=== PATIENT | female | born 1955 | race Caucasian/White ===

== ENCOUNTER 2016-06-23 06:58 | Emergency (ER) | payer MEDICAID, OTHER ==
[~2016-06-23] VITALS: Wt 63.5 kg
[~2016-06-23 06:58] MED LIST: ALEN70TA30 PO; LEVO75TA65 PO
[2016-06-23] MEDS ORDERED: ONDANSETRON 4 MG INJ IV STA (07:23)
[2016-06-23] MEDS ORDERED: SOD CHLORIDE 0.9% 1,000 ML IV STA (07:23)
[2016-06-23] MEDS ORDERED: morphine 2 MG INJ IV ONE (07:30)
[2016-06-23] MEDS ORDERED: DICLOFENAC SODIUM 37.5 MG/ML VIAL IV STA (08:04)
[2016-06-23 08:14] LABS: BASOPHILS % 0.2 % (0.0-2.0); EOSINOPHILS % 0.6 % (0.0-7.0); HEMATOCRIT 39.2 % (37.0-47.0); HEMOGLOBIN 13.1 g/dl (12.0-16.0); LYMPHOCYTES # 0.5 10^3/ul (0.8-2.9); LYMPHOCYTES % 7.2 % (15.0-51.0); MEAN CORPUSCULAR HEMOGLOBIN 29.1 pg (29.0-33.0); MEAN CORPUSCULAR HGB CONC 33.4 g/dl (32.0-37.0); MEAN CORPUSCULAR VOLUME 87.4 fl (82.0-101.0); MEAN PLATELET VOLUME 9.4 fl (7.4-10.4); MONOCYTE # 0.2 10^3/ul (0.3-0.9); MONOCYTES % 3.2 % (0.0-11.0); NEUTROPHIL # 5.7 10^3/ul (1.6-7.5); NEUTROPHILS % 88.8 % (39.0-77.0); PLATELET COUNT 138 10^3/UL (140-440); RED BLOOD COUNT 4.49 10^6/ul (4.20-5.40); RED CELL DISTRIBUTION WIDTH 14.8 % (11.5-14.5); UNCORRECTED WBC 6.4 10^3/ul (4.8-10.8); WHITE BLOOD COUNT 6.4 10^3/ul (4.8-10.8)
[2016-06-23 08:16] LABS: ADD UMIC YES; URINE BILIRUBIN (Dip) NEGATIVE (NEGATIVE); URINE BLOOD (Dip) NEGATIVE (NEGATIVE); URINE COLOR YELLOW (YELLOW); URINE GLUCOSE (Dip) NEGATIVE (NEGATIVE); URINE KETONES (Dip) NEGATIVE (NEGATIVE); URINE LEUKOCYTE ESTERASE (Dip) TRACE (NEGATIVE); URINE NITRITE (Dip) NEGATIVE (NEGATIVE); URINE TOTAL PROTEIN (Dip) NEGATIVE (NEGATIVE); URINE UROBILINOGEN (Dip) 1.0 E.U./dL (0.1-1.0)
[2016-06-23 08:18] LABS: CONDITION 1; LH ANALYZER COMMENTS 1
[2016-06-23 08:30] LABS: CREATININE 0.64 mg/dl (0.44-1.00)
[2016-06-23 08:31] LABS: ALBUMIN/GLOBULIN RATIO 1.14; BILIRUBIN,INDIRECT 0.7 mg/dl (0-1.1); BILIRUBIN,TOTAL 0.7 mg/dl (0.2-1.3); TOTAL PROTEIN 7.5 g/dl (6.1-8.1)
[2016-06-23 08:32] LABS: CALCIUM 8.4 mg/dl (8.4-10.2)
[2016-06-23 08:32] LABS: BACTERIA,URINE MANY; MUCUS,URINE MODERATE
--- NOTE | 2016-06-23 08:45 | RADRPT ---
PROCEDURE: Abdominal Series. CLINICAL INDICATION: Abdominal pain. Constipation. TECHNIQUE: Two views of the abdomen. COMPARISON: None. FINDINGS: There is a nonspecific bowel gas pattern. There is no evidence of large or small bowel obstruction. There is mild retained colonic stool. There are no abnormal calcifications overlying the urinary tra cts. The osseous structures are unremarkable. Calcifications are seen overlying the left iliac wing likely related to gluteal granulomata. IMPRESSION: 1. Unremarkable abdominal radograph series. RPTAT: KK .Narinder Michelle MD, MD Date Time Electronically viewed and signed by .Narinder Michelle MD, MD on 06/23/2016 08:44 .B/
[2016-06-23] MEDS ORDERED: BACTDS PO (09:26)
[2016-06-23] MEDS ORDERED: CIPR500T4 PO (09:26)
[2016-06-23] MEDS ORDERED: ONDA4TAB11 PO (09:26)
[2016-06-23] MEDS ORDERED: NAPR-688 PO (09:26)
[2016-06-23] MEDS ORDERED: FLUC150T17 PO (09:26)
--- NOTE | 2016-06-23 09:33 | ERD ---
ER Documentation Chief Complaint Date/Time DATE: 06/23/16 TIME: 09:28 Chief Complaint fever and abdominal pain with nausea and vomiting since last night HPI This 60-year-old female presents emergency room for aching suprapubic abdominal pain, subjective feeling of warmth and an episode of nonbloody nonbilious vomiting as well as nausea. Denies diarrhea constipation. Does have increased urinary frequency. ROS All systems reviewed and are negative except as per history of present illness. Medications Home Meds Active Scripts Ondansetron (Zofran Odt) 4 Mg Tab.rapdis, 4 MG PO Q6, #10 Prov:ABEBA TSANG DO 06/23/16 Fluconazole* (Diflucan*) 150 Mg Tablet, 150 MG PO ONCE, #1 TAB Take only if you develop a yeast infection Prov:ABEBA TSANG DO 06/23/16 Sulfamethoxazole-Trimethoprim* (Bactrim* DS) 800-160 Mg Tab, 1 TAB PO BID for 5 Days, TAB Prov:ABEBA TSANG DO 06/23/16 Ciprofloxacin Hcl* (Ciprofloxacin Hcl*) 500 Mg Tablet, 500 MG PO BID for 5 Days , TAB Prov:ABEBA TSANG DO 06/23/16 Naproxen* (Naproxen*) 500 Mg Tablet, 500 MG PO BID Y for PAIN, #20 TAB Prov:ABEBA TSANG DO 06/23/16 Reported Medications Alendronate Sodium* (Fosamax*) 70 Mg Tablet, 70 MG PO Q7D, #4 TAB 08/06/15 Levothyroxine Sodium* (Levoxyl*) 75 Mcg Tablet, 75 MCG PO AC BREAKFAST, TAB 02/10/15 Allergies Allergies: Coded Allergies: No Known Allergy (Unverified , 06/23/16) PMhx/Soc History of Surgery: No Anesthesia Reaction: No Hx Neurological Disorder: Yes Hx Respiratory Disorders: Yes (asthma) Hx Cardiac Disorders: No Hx Psychiatric Problems: Yes (bipolar, schizophrenia) Hx Miscellaneous Medical Probl: No Hx Alcohol Use: No Hx Substance Use: Yes ([place] meth) Hx Tobacco Use: Yes (1 pack a day) Smoking Status: Heavy tobacco smoker Physical Exam Vitals Vital Signs Date Time Temp Pulse Resp B/P Pulse Ox O2 Delivery O2 Flow Rate FiO2 06/23/16 07:00 98.8 75 20 103/58 98 Physical Exam Const: [] No distress Head: Atraumatic Eyes: Normal Conjunctiva ENT: Normal External Ears, Nose and Mouth. Neck: Full range of motion..~ No meningismus. Resp: Clear to auscultation bilaterally Cardio: Regular rate and rhythm, no murmurs Abd: Soft, mild suprapubic tenderness without guarding or rebound, non distended. Normal bowel sounds Skin: No petechiae or rashes Back: No midline or flank tenderness Ext: No cyanosis, or edema Neur: Awake and alert and oriented 3, no focal deficits Psych: Normal Mood and Affect Result Diagram: 06/23/16 07506/23/16 0752 Results 24 hrs Laboratory Tests Test 06/23/16 07:50 06/23/16 07:52 Urine Bacteria MANY Urine Bilirubin NEGATIVE Urine Clarity CLEAR Urine Color YELLOW Urine Epithelial Cells MANY Urine Glucose NEGATIVE% Urine Hemoglobin NEGATIVE Urine Ketones NEGATIVE Urine Leukocyte Esterase TRACE Urine Microscopic RBC 5-10/HPF Urine Microscopic WBC 5-10/HPF Urine Mucus MODERATE Urine Nitrite NEGATIVE Urine Specific [place] 1.015 Urine Total Protein NEGATIVE Urine Urobilinogen 1.0 E.U./dL Urine pH 6.5 Alanine Aminotransferase (ALT/SGPT) 38IU/L Albumin 4.0g/dl Albumin/Globulin Ratio 1.14 Alkaline Phosphatase 70IU/L Anion Gap 15 Aspartate Amino Transf (AST/SGOT) 33IU/L Basophils # 0.010^3/ul Basophils % 0.2% Blood Morphology Comment Blood Urea Nitrogen 17mg/dl Calcium Level 8.4mg/dl Carbon Dioxide Level 30mmol/L Chloride Level 101mmol/L Creatinine 0.64mg/dl Direct Bilirubin 0.00mg/dl Eosinophils # 0.010^3/ul Eosinophils % 0.6% Globulin 3.50g/dl Glucose Level 79mg/dl Hematocrit 39.2% Hemoglobin 13.1g/dl Indirect Bilirubin 0.7mg/dl Lipase 28U/L Lymphocytes # 0.510^3/ul Lymphocytes % 7.2% Mean Corpuscular Hemoglobin 29.1pg Mean Corpuscular Hemoglobin Concent 33.4g/dl Mean Corpuscular Volume 87.4fl Mean Platelet Volume 9.4fl Monocytes # 0.210^3/ul Monocytes % 3.2% Neutrophils # 5.710^3/ul Neutrophils % 88.8% Nucleated Red Blood Cells # 0.010^3/ul Nucleated Red Blood Cells % 0.0/100WBC Platelet Count 94445^3/UL Potassium Level 4.0mmol/L Red Blood Count 4.4910^6/ul Red Cell Distribution Width 14.8% Sodium Level 142mmol/L Total Bilirubin 0.7mg/dl Total Protein 7.5g/dl White Blood Count 6.410^3/ul Current Medications Medications (Trade) Dose Ordered Sig/Ronna Route PRN Reason Start Time Stop Time Status Last Admin Dose Admin Sodium Chloride (NS) 1,000 ml @ 1,000 mls/hr Q1H STAT IV 06/23/16 07:23 06/23/16 08:22 DC 06/23/16 07:42 Ondansetron HCl (Zofran Inj) 4 mg ONCE STAT IV 06/23/16 07:23 06/23/16 07:28 DC 06/23/16 07:42 Morphine Sulfate (morphine) 2 mg ONCE ONCE IV 06/23/16 07:30 06/23/16 07:31 DC Diclofenac Sodium (Dyloject) 37.5 mg ONCE STAT IV 06/23/16 08:04 06/23/16 08:05 DC 06/23/16 08:16 Procedures/MDM Patient with urinary tract infection. She was treated with Zofran and IV fluids initially. She refused 2 mg of morphine because she does not take narcotics because of prior addiction. I then gave her Dilaudid checked with helped significantly with her pain. She was feeling much better in the emergency department has no signs of sepsis. No signs of acute kidney injury or renal failure either. Does have mild thrombocytopenia. I went to discharge her with Cipro, Bactrim, Zofran ODT, naproxen. I'm also going to give her a single Diflucan tab when necessary yeast infection. Primary care follow up in 2-3 days and return precautions to the hospital given if treatment is not helping her symptoms. Abdominal x-ray two-view interpretation by myself: See no acute process, nonspecific bowel gas pattern, no constipation, no obstruction, no free air, no fractures Departure Diagnosis: Primary Impression: Abdominal pain Additional Impression: UTI (urinary tract infection) Condition: Stable Patient Instructions: Abdominal Pain, Understanding Urinary Tract Infections ( UTIs) Additional Instructions: Call your primary care doctor TOMORROW for an appointment during the next 2-3 days.See the doctor sooner or return here if your condition worsens before your appointment time. ABEBA TSANG DO Jun 23, 2016 09:33
[2016-06-23 09:43] VITALS: BP 110/56; PULSE 72; RESP 18; TEMP 98.4
== END 2016-06-23 09:49 | disposition home or self-care (01) ==
LOC: E/R 06:58
DX: R10.30 Lower abdominal pain, unspecified (principal); N39.0 Urinary tract infection, site not specified; F17.210 Nicotine dependence, cigarettes, uncomplicated; J45.909 Unspecified asthma, uncomplicated; R11.2 Nausea with vomiting, unspecified; I10 Essential (primary) hypertension
CPT/HCPCS: 36415; 74010; 80053; 81001; 83690; 85025; 96374; 96375; J2270; J2405; J7030; Z7502; Z7610; 81003

== ENCOUNTER 2016-06-25 13:29 | Emergency (ER) | payer MEDICAID ==
[~2016-06-25] VITALS: Ht 149.9 cm; Wt 55.0 kg
[~2016-06-25 13:29] MED LIST changes: +BACTDS PO; +CIPR500T4 PO; +FLUC150T17 PO; +NAPR-688 PO; +ONDA4TAB11 PO
[2016-06-25 13:41] VITALS: Ht 149.9 cm; Wt 55.0 kg
== END 2016-06-25 14:31 | disposition left against medical advice (07) ==
LOC: FTE 13:29
DX: Z53.21 Procedure and treatment not carried out due to patient leaving prior to being seen by health care provider (principal)

== ENCOUNTER 2016-10-29 10:15 | Emergency (ER) | payer MEDICAID, OTHER ==
[~2016-10-29] VITALS: Wt 51.5 kg
[2016-10-29] MEDS ORDERED: ACETAMINOPHEN 500 MG TAB PO STA (10:36)
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
[2016-10-29] MEDS ORDERED: IBUP400T22 PO (11:36)
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
== END 2016-10-29 12:06 | disposition home or self-care (01) ==
LOC: FTE 10:15
DX: S01.112A Laceration without foreign body of left eyelid and periocular area, initial encounter (principal); J45.909 Unspecified asthma, uncomplicated; I10 Essential (primary) hypertension; F17.210 Nicotine dependence, cigarettes, uncomplicated; Y08.89XA Assault by other specified means, initial encounter
CPT/HCPCS: 71100; Z7610